=== PATIENT | female | born 1970 | race Caucasian/White ===

== ENCOUNTER → 2016-06-06 | Outpatient (REF) | payer OTHER ==
[~2016-06-06] MED LIST: IBUP600T26 PO; NORCOTAB PO; TAB-TAB5 PO
== END ==
LOC: M LAB REF 12:42
PROVIDERS: ATTEND Physician Assistant
DX: J11.1 Influenza due to unidentified influenza virus with other respiratory manifestations (principal)

== ENCOUNTER 2017-02-27 07:57 | Emergency (ER) | payer OTHER, SELFPAY ==
[~2017-02-27] VITALS: Ht 149.9 cm; Wt 48.8 kg
[~2017-02-27 07:57] MED LIST changes: +IBUP-1022 PO; -IBUP600T26 PO
[2017-02-27] MEDS ORDERED: ONDANSETRON 4 MG ORAL DISINTEGRATING TAB (S0181) PO ONE (08:30)
[2017-02-27] MEDS ORDERED: ZOFR4TAB3 PO (09:23)
[2017-02-27 09:34] VITALS: BP 108/82
== END 2017-02-27 09:36 | disposition home or self-care (01) ==
LOC: M ED 07:57
DX: J06.9 Acute upper respiratory infection, unspecified (principal); B34.9 Viral infection, unspecified; Z88.0 Allergy status to penicillin; F17.210 Nicotine dependence, cigarettes, uncomplicated

== ENCOUNTER 2017-11-17 14:40 | Emergency (ER) | payer SELFPAY ==
[2017-11-17] MEDS: IBUPROFEN 800 MG TAB PO (16:23)
== END 2017-11-17 16:39 | disposition home or self-care (01) ==
LOC: M ED 14:40
DX: T25.232A Burn of second degree of left toe(s) (nail), initial encounter (principal); X12.XXXA Contact with other hot fluids, initial encounter; Y92.238 Other place in hospital as the place of occurrence of the external cause; Y93.9 Activity, unspecified; Y99.0 Civilian activity done for income or pay; Z72.0 Tobacco use; Z88.0 Allergy status to penicillin
CPT/HCPCS: 16000

== ENCOUNTER 2018-12-03 09:26 | Emergency (ER) | payer SELFPAY ==
[~2018-12-03] VITALS: Ht 142.2 cm; Wt 51.5 kg
[~2018-12-03 09:26] MED LIST changes: +HYDR-3715 PO; +IBUP80TA PO; -NORCOTAB PO; +SILV1CRE60 TOP; +ZOFR4TAB14 PO
[2018-12-03] MEDS ORDERED: ONDANSETRON 4 MG ORAL DISINTEGRATING TAB (Q0162 PER 1MG) PO ONE (10:15)
[2018-12-03] MEDS ORDERED: NAPROXEN 250 MG TAB PO ONE (11:00)
[2018-12-03 11:01] VITALS: BP 138/86
[2018-12-03] MEDS ORDERED: ONDA4TAB6 PO (11:45)
== END 2018-12-03 12:00 | disposition home or self-care (01) ==
LOC: M ED 09:26
DX: R11.2 Nausea with vomiting, unspecified (principal); B34.9 Viral infection, unspecified; Z88.0 Allergy status to penicillin; F17.210 Nicotine dependence, cigarettes, uncomplicated
CPT/HCPCS: 87880; 99284; Q0162

== ENCOUNTER 2019-03-27 10:49 | Emergency (ER) | payer OTHER, SELFPAY ==
[~2019-03-27] VITALS: Ht 149.9 cm; Wt 52.2 kg
[~2019-03-27 10:49] MED LIST changes: +ONDA4TAB6 PO
--- NOTE | 2019-03-27 12:31 | REP ---
Left foot: Four views. History: Injury in a fall. Findings: Four views of the left foot demonstrate an os naviculare. Overall mineralization pattern is normal. No tarsal or metatarsal fracture is appreciated. On one of the oblique views, there is cortical irregularity and discontinuity in the distal phalanx of the great toe. The fracture is suspected. This should be correlated with area of tenderness palpation and mechanism of injury. No other fracture is seen. This is not visible on any other view. Impression: Possible great toe fracture distal phalanx nondisplaced on the one view only. Correlate clinically. Otherwise negative. Electronically Signed by Darwin Pulido MD 03/27/2019 12:23 P
[2019-03-27 13:12] VITALS: BP 144/91
--- NOTE | 2019-03-27 13:39 | REP ---
LEFT ANKLE, FOUR VIEWS: There is no evidence of an acute fracture, dislocation or intrinsic bone disease. IMPRESSION: No fracture or dislocation. Electronically Signed by Oliver Lizama MD 03/27/2019 05:43 P
== END 2019-03-27 13:13 | disposition home or self-care (01) ==
LOC: M ED 10:49
DX: S93.402A Sprain of unspecified ligament of left ankle, initial encounter (principal); X50.9XXA Other and unspecified overexertion or strenuous movements or postures, initial encounter; Y92.018 Other place in single-family (private) house as the place of occurrence of the external cause; Z88.0 Allergy status to penicillin; F17.210 Nicotine dependence, cigarettes, uncomplicated

== ENCOUNTER → 2020-07-20 | Outpatient (REF) | payer OTHER ==
[2020-07-20 18:27] LABS: BASO % 0.7 % (0.0-1.0); EOS % 3.9 % (0.0-3.0); HEMATOCRIT 45.6 % (36.0-47.0); HEMOGLOBIN 14.4 g/dl (12.0-15.5); LYMPH # 1.7 10^3/uL (1.5-5.0); LYMPH % 24.2 % (24.0-44.0); MEAN CORPUSCULAR HEMOGLOBIN 26.5 pg (27.0-33.0); MEAN CORPUSCULAR HGB CONC 31.6 g/dl (32.0-36.5); MEAN CORPUSCULAR VOLUME 83.8 fl (80.0-96.0); MONO % 9.6 % (2.0-8.0); NEUTROPHILS # 4.2 10^3/uL (1.5-8.5); NEUTROPHILS % 61.3 % (36.0-66.0); PLATELET COUNT, AUTOMATED 210 10^3/uL (150-450); RED BLOOD COUNT 5.44 10^6/uL (4.00-5.40); WHITE BLOOD COUNT 6.9 10^3/uL (4.0-10.0)
[2020-07-20 18:28] LABS: BASO # 0.1 10^3/uL (0.0-0.2); EOS # 0.3 10^3/uL (0.0-0.5); MONO # 0.7 10^3/uL (0.0-0.8)
[2020-07-20 19:07] LABS: ALBUMIN 4.5 GM/DL (3.2-5.2); ALT/SGPT 21 U/L (12-78); BILIRUBIN,TOTAL 0.4 MG/DL (0.2-1.0); BLOOD UREA NITROGEN 13 MG/DL (7-18); CALCIUM LEVEL 9.6 MG/DL (8.5-10.1); CARBON DIOXIDE LEVEL 29 MEQ/L (21-32); CHLORIDE LEVEL 108 MEQ/L (98-107); CHOLESTEROL LEVEL 175 MG/DL (<200); CHOLESTEROL RISK RATIO 3.125 (<5); CREATININE FOR GFR 0.67 MG/DL (0.55-1.30); FREE T4 0.98 NG/DL (0.76-1.46); GLOMERULAR FILTRATION RATE > 60.0 (>58); GLUCOSE, FASTING 107 MG/DL (70-100); HDL CHOLESTEROL 56 MG/DL (>40); LDL CHOLESTEROL 83 MG/DL (<100); NON-HDL-C 119 MG/DL; POTASSIUM SERUM 3.7 MEQ/L (3.5-5.1); SODIUM LEVEL 143 MEQ/L (136-145); TOTAL PROTEIN 7.2 GM/DL (6.4-8.2); TRIGLYCERIDES LEVEL 182 MG/DL (<150)
[2020-07-20 19:10] LABS: HEPATITIS B SURFACE ANTIBODY NEGATIVE (POSITIVE)
[2020-07-20 19:21] LABS: HEPATITIS B SURFACE ANTIGEN NEGATIVE (NEGATIVE)
[2020-07-20 19:49] LABS: HEPATITIS C VIRUS ABY INDEX < 0.0 INDEX (<0.8); HIV 1&2 SCREEN CENTAUR NEGATIVE (NEGATIVE)
== END ==
LOC: M SFHCPLAZ 15:05
PROVIDERS: ATTEND Physician Assistant Medical
DX: Z00.00 Encounter for general adult medical examination without abnormal findings (principal)

== ENCOUNTER 2020-10-17 08:33 | Emergency (ER) | payer MEDICAID, OTHER, SELFPAY ==
[~2020-10-17] VITALS: Ht 149.9 cm; Wt 51.3 kg
[2020-10-17 08:33] VITALS: BP 143/97
[2020-10-17] MEDS ORDERED: MUCI1TAB16 PO (09:33)
== END 2020-10-17 10:20 | disposition home or self-care (01) ==
LOC: M ED 08:33
DX: J06.9 Acute upper respiratory infection, unspecified (principal); Z88.0 Allergy status to penicillin

== ENCOUNTER 2021-11-25 10:33 | Emergency (ER) | payer OTHER, SELFPAY ==
[~2021-11-25] VITALS: Ht 139.7 cm; Wt 48.7 kg
[~2021-11-25 10:33] MED LIST changes: +MUCI1TAB16 PO
[2021-11-25 13:40] LABS: RSV AMPLIFICATION NEGATIVE (NEGATIVE)
[2021-11-25] MEDS ORDERED: BENZ200C70 PO (14:19)
[2021-11-25] MEDS ORDERED: LIDO2SOL17 PO (14:19)
[2021-11-25 14:31] VITALS: BP 119/70
== END 2021-11-25 14:32 | disposition home or self-care (01) ==
LOC: M ED 10:33
DX: U07.1 COVID-19 (principal); J02.9 Acute pharyngitis, unspecified; R05.9 Cough, unspecified; Z88.0 Allergy status to penicillin

== ENCOUNTER 2022-03-28 08:17 | Emergency (ER) | payer OTHER, SELFPAY ==
[~2022-03-28] VITALS: Ht 149.9 cm; Wt 51.2 kg
[~2022-03-28 08:17] MED LIST changes: +BENZ200C70 PO; +LIDO2SOL17 PO
[2022-03-28 12:26] LABS: BASO % 0.6 % (0.0-1.0); EOS # 0.2 10^3/uL (0.0-0.5); EOS % 2.8 % (0.0-3.0); HEMATOCRIT 42.8 % (36.0-47.0); HEMOGLOBIN 13.9 g/dl (12.0-15.5); LYMPH # 1.6 10^3/uL (1.5-5.0); LYMPH % 23.9 % (24.0-44.0); MEAN CORPUSCULAR HEMOGLOBIN 26.9 pg (27.0-33.0); MEAN CORPUSCULAR HGB CONC 32.5 g/dl (32.0-36.5); MEAN CORPUSCULAR VOLUME 82.8 fl (80.0-96.0); MONO # 0.7 10^3/uL (0.0-0.8); MONO % 9.6 % (2.0-8.0); NEUTROPHILS # 4.3 10^3/uL (1.5-8.5); PLATELET COUNT, AUTOMATED 184 10^3/uL (150-450); RED BLOOD COUNT 5.17 10^6/uL (4.00-5.40); WHITE BLOOD COUNT 6.8 10^3/uL (4.0-10.0)
[2022-03-28 13:03] LABS: BLOOD UREA NITROGEN 9 MG/DL (9-23); CALCIUM LEVEL 9.1 MG/DL (8.5-10.1); CARBON DIOXIDE LEVEL 26 MMOL/L (20-31); CHLORIDE LEVEL 107 MMOL/L (98-107); CREATININE FOR GFR 0.65 MG/DL (0.55-1.30); GLOMERULAR FILTRATION RATE > 60.0 (>58); GLUCOSE, FASTING 87 MG/DL (60-100); POTASSIUM SERUM 4.6 MMOL/L (3.5-5.1); SODIUM LEVEL 141 MMOL/L (136-145)
[2022-03-28] MEDS ORDERED: MIRA3350 PO (14:23)
[2022-03-28] MEDS ORDERED: DICY10CA13 PO (14:23)
[2022-03-28 14:28] VITALS: BP 121/76
== END 2022-03-28 14:42 | disposition home or self-care (01) ==
LOC: M ED 08:17
DX: R10.32 Left lower quadrant pain (principal); F17.200 Nicotine dependence, unspecified, uncomplicated; Z88.0 Allergy status to penicillin; Z88.1 Allergy status to other antibiotic agents; Z90.710 Acquired absence of both cervix and uterus; Z79.891 Long term (current) use of opiate analgesic; Z79.899 Other long term (current) drug therapy

== ENCOUNTER → 2022-05-19 | Outpatient (CLI) | payer OTHER ==
[~2022-05-19] MED LIST changes: +DICY10CA13 PO; +LIDO15SO4 PO; -LIDO2SOL17 PO; +MIRA3350 PO
== END ==
LOC: M WUC 10:18
PROVIDERS: ATTEND Physician Assistant
DX: M43.07 Spondylolysis, lumbosacral region (principal); M41.25 Other idiopathic scoliosis, thoracolumbar region

== ENCOUNTER → 2022-07-14 | Outpatient (CLI) | payer OTHER ==
[~2022-07-14] MED LIST changes: +LIDO15SO PO; -LIDO15SO4 PO
[2022-07-14 13:15] LABS: PLATELET COUNT, AUTOMATED 235 10^3/uL (150-450)
[2022-07-14 13:47] LABS: INR 0.93; PROTHROMBIN TIME 12.7 SECONDS (12.5-14.5)
[2022-07-14 13:48] LABS: PARTIAL THROMBOPLASTIN TIME 29.4 SECONDS (24.8-34.2)
== END ==
LOC: M LAB 12:17
PROVIDERS: ATTEND Physician Assistant Surgical
DX: Z01.818 Encounter for other preprocedural examination (principal)

== ENCOUNTER → 2023-01-10 | Outpatient (CLI) | payer OTHER ==
[~2023-01-10] MED LIST changes: +DICY-61 PO; -DICY10CA13 PO
[2023-01-10 13:17] LABS: PLATELET COUNT, AUTOMATED 166 10^3/uL (150-450)
[2023-01-10 13:33] LABS: INR 1.03; PROTHROMBIN TIME 13.2 SECONDS (12.5-14.5)
[2023-01-10 13:34] LABS: PARTIAL THROMBOPLASTIN TIME 29.3 SECONDS (24.8-34.2)
[2023-01-10 13:49] LABS: ERYTHROCYTE SEDIMENTATION RATE 17 mm/hr (0-30)
== END ==
LOC: M WUC 10:27
PROVIDERS: ATTEND Physical Medicine & Rehabilitation
DX: Z01.818 Encounter for other preprocedural examination (principal)

== ENCOUNTER → 2024-04-09 | Outpatient (REF) | payer OTHER ==
[~2024-04-09] MED LIST changes: -LIDO15SO PO; +LIDO15SO8 PO; +ONDA-282 PO; -ONDA4TAB6 PO
[2024-04-09 18:43] LABS: HEMATOCRIT 47.9 % (36.0-47.0); HEMOGLOBIN 15.7 g/dl (12.0-15.5); MEAN CORPUSCULAR HEMOGLOBIN 26.8 pg (27.0-33.0); MEAN CORPUSCULAR HGB CONC 32.8 g/dl (32.0-36.5); MEAN CORPUSCULAR VOLUME 81.9 fl (80.0-96.0); PLATELET COUNT, AUTOMATED 231 10^3/uL (150-450); RED BLOOD COUNT 5.85 10^6/uL (4.00-5.40); WHITE BLOOD COUNT 6.7 10^3/uL (4.0-10.0)
[2024-04-09 19:07] LABS: HEMOGLOBIN A1c 5.2 % (4.0-6.0)
[2024-04-09 19:18] LABS: ALBUMIN 4.6 G/DL (3.2-5.2); ALKALINE PHOSPHATASE 123 U/L (35-104); ALT/SGPT 13 U/L (7.0-40); AST/SGOT 9 U/L (<34); BILIRUBIN,TOTAL 0.4 MG/DL (0.3-1.2); BLOOD UREA NITROGEN 15 MG/DL (9-23); CALCIUM LEVEL 9.3 MG/DL (8.5-10.1); CARBON DIOXIDE LEVEL 25 MMOL/L (20-31); CHLORIDE LEVEL 112 MMOL/L (98-107); CHOLESTEROL LEVEL 168 MG/DL (<200); CHOLESTEROL RISK RATIO 2.94 (<5); CREATININE FOR GFR 0.64 MG/DL (0.55-1.30); GLOMERULAR FILTRATION RATE > 60.0 (>51); GLUCOSE, FASTING 104 MG/DL (60-100); HDL CHOLESTEROL 57.1 MG/DL (>40); LDL CHOLESTEROL 92.9 MG/DL (<100); NON-HDL-C 110.9 MG/DL; POTASSIUM SERUM 4.7 MMOL/L (3.5-5.1); SODIUM LEVEL 142 MMOL/L (136-145); TOTAL PROTEIN 7.2 G/DL (5.7-8.2); TRIGLYCERIDES LEVEL 90 MG/DL (<150)
[2024-04-09 19:19] LABS: THYROID STIMULATING HORMONE 2.609 uIU/ML (0.55-4.78)
== END ==
LOC: M LAB REF 16:45
PROVIDERS: ATTEND Student in an Organized Health Care Education/Training Program
DX: Z00.01 Encounter for general adult medical examination with abnormal findings (principal)

== ENCOUNTER → 2024-05-02 | Outpatient (CLI) | payer OTHER | LOC: M RAD 13:20 | PROVIDERS: ATTEND Student in an Organized Health Care Education/Training Program | DX: F17.210 Nicotine dependence, cigarettes, uncomplicated (principal); R91.1 Solitary pulmonary nodule ==

== ENCOUNTER → 2024-07-31 | Outpatient (CLI) | payer OTHER | LOC: M PLAIMG 11:16 | PROVIDERS: ATTEND Student in an Organized Health Care Education/Training Program | DX: R91.1 Solitary pulmonary nodule (principal) ==

== ENCOUNTER → 2024-09-22 | Outpatient (REF) | payer OTHER ==
[2024-09-22 13:30] LABS: ALT/SGPT 18 U/L (7.0-40); AST/SGOT 16 U/L (<34); CALCIUM LEVEL 9.5 MG/DL (8.5-10.1); CARBON DIOXIDE LEVEL 26 MMOL/L (20-31); CHLORIDE LEVEL 107 MMOL/L (98-107); CREATININE FOR GFR 0.71 MG/DL (0.55-1.30); GLOMERULAR FILTRATION RATE > 90.0 (>51); POTASSIUM SERUM 4.0 MMOL/L (3.5-5.1); SODIUM LEVEL 141 MMOL/L (136-145)
[2024-09-22 13:31] LABS: BASO # 0.1 10^3/uL (0.0-0.2); BASO % 0.7 % (0.0-1.0); EOS # 0.2 10^3/uL (0.0-0.5); EOS % 2.6 % (0.0-3.0); LYMPH # 2.1 10^3/uL (1.5-5.0); LYMPH % 24.2 % (24.0-44.0); MONO # 0.8 10^3/uL (0.0-0.8); MONO % 9.0 % (2.0-8.0); NEUTROPHILS # 5.5 10^3/uL (1.5-8.5); NEUTROPHILS % 63.3 % (36.0-66.0); PLATELET COUNT, AUTOMATED 229 10^3/uL (150-450)
== END ==
LOC: M LAB REF 12:29
PROVIDERS: ATTEND Student in an Organized Health Care Education/Training Program
DX: B35.1 Tinea unguium (principal); R71.8 Other abnormality of red blood cells

== ENCOUNTER 2024-12-13 12:01 | Emergency (ER) | payer OTHER ==
[~2024-12-13] VITALS: Ht 149.9 cm; Wt 46.1 kg
[~2024-12-13 12:01] MED LIST changes: -IBUP-1022 PO; +IBUP600T42 PO
[2024-12-13] MEDS: LIDOCAINE 2% MDV 20 ML VIAL SC ONE (13:30)
[2024-12-13] MEDS: TETANUS/DIPHTH/ACEL. PERTUSSIS 0.5 ML SYR IM.IMMUN ONE (14:04)
[2024-12-13 14:13] VITALS: BP 133/61; TEMP 98.7; O2SAT 97
== END 2024-12-13 14:16 | disposition home or self-care (01) ==
LOC: M ED 12:01
DX: S61.211A Laceration without foreign body of left index finger without damage to nail, initial encounter (principal); Y92.019 Unspecified place in single-family (private) house as the place of occurrence of the external cause; Y93.9 Activity, unspecified; Y99.9 Unspecified external cause status; W26.0XXA Contact with knife, initial encounter; F17.210 Nicotine dependence, cigarettes, uncomplicated; Z23 Encounter for immunization; Z88.0 Allergy status to penicillin; Z88.1 Allergy status to other antibiotic agents; Z79.899 Other long term (current) drug therapy

== ENCOUNTER 2024-12-19 11:41 | Emergency (ER) | payer OTHER ==
[~2024-12-19] VITALS: Ht 149.9 cm; Wt 46.9 kg
[2024-12-19] MEDS ORDERED: GABA-1172 (11:45)
[2024-12-19 13:51] VITALS: BP 123/90; TEMP 98.7; O2SAT 99
== END 2024-12-19 13:53 | disposition home or self-care (01) ==
LOC: M ED 11:41
DX: Z48.02 Encounter for removal of sutures (principal); Z88.0 Allergy status to penicillin; Z88.1 Allergy status to other antibiotic agents; Z88.8 Allergy status to other drugs, medicaments and biological substances